=== PATIENT | female | born 1990 | race Caucasian/White ===

== ENCOUNTER 2020-01-24 09:21 | Inpatient (IN) | payer OTHER ==
--- NOTE | 2020-01-24 10:51 | BHS.RME ---
Substance Use & Tx History - Substance Use History Alcohol Substance amount: 2pints of vodka Frequency of use: Daily Substance route: Oral Date of Last Use: 01/23/20 Marijuana/Hashish Substance amount: 5 $ Frequency of use: Daily Substance route: Smoking Date of Last Use: 01/22/20 Xanax Substance amount: 1mg Frequency of use: Daily Substance route: Oral Date of Last Use: 01/22/20 - Last Treatment Date of last treatment: never been in detox before Physical/Psych/Mental Status - Behavior Eye Contact: Normal - Cooperativeness Cooperativeness: Cooperative - Thinking Thought Processes: Logical Thought content: Future oriented - Physical Health Problems Is patient presently having any pain?: No Does patient presently have any injuries (include location): No Does patient currently have a fever: No CIWA Nausea/Vomitin Muscle Tremors: 2 Anxiety: 3 Agitation: 3 Paroxysmal Sweats: No Perspiration Orientation: 0-Oriented Tacttile Disturbances: 1-Very Mild Itch/Numbness Auditory Disturbances: 0-None Visual Disturbances: 1-Very Mild Sensitivity Headache: 2-Mild CIWA-Ar Total Score: 14
--- NOTE | 2020-01-24 10:58 | HP ---
CIWA Score Nausea/Vomitin Muscle Tremors: 2 Anxiety: 3 Agitation: 3 Paroxysmal Sweats: No Perspiration Orientation: 0-Oriented Tacttile Disturbances: 1-Very Mild Itch/Numbness Auditory Disturbances: 0-None Visual Disturbances: 1-Very Mild Sensitivity Headache: 2-Mild CIWA-Ar Total Score: 14 - Admission Criteria OASAS Guidelines: Admission for Medically Managed Detox: Requires at least one of the followin. CIWA greater than 12 2. Seizures within the past 24 hours 3. Delirium tremens within the past 24 hours 4. Hallucinations within the past 24 hours 5. Acute intervention needed for co occurring medical disorder 6. Acute intervention needed for co occurring psychiatric disorder 7. Severe withdrawal that cannot be handled at a lower level of care (continued vomiting, continued diarrhea, abnormal vital signs) requiring intravenous medication and/or fluids 8. 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 ...LMP: 01/09/20 ...: No Psych: Yes: Anxiety, Depression - Smoking History Smoking history: Former smoker Have you smoked in the past 12 months: No If you are a former smoker, when did you quit?: 05/2018 - Alcohol/Substance Use Hx Alcohol Use: Yes Date of Last Use: 01/23/20 - Social History Usual Living Arrangement: Yes: With Parent Do you think of yourself as: Straight/Heterosexual ADL: Independent 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 History of Recent Travel: No Other Social History: 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 ,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 Admission ROS S - HPI Chief Complaint: i need help to stop drinking alcohol,[place] Allergies/Adverse Reactions: Allergies Allergy/AdvReac Type Severity Reaction Status Date / Time No Known Allergies Allergy Verified 01/24/20 11:02 History of Present Illness: this 29 years old female with alcohol dependence,marijuana abused,seeking detox,need help to stop drinking Exam Limitations: No Limitations - Ebola screening Have you traveled outside of the country in the last 21 days: No Have you had contact with anyone from an Ebola affected area: No Have you been sick,other than usual withdrawal symptoms: No Do you have a fever: No - Review of Systems Constitutional: Loss of Appetite, Malaise, Night Sweats, Changes in sleep, Weakness EENT: reports: Nose Congestion Respiratory: reports: No Symptoms reported Cardiac: reports: No Symptoms Reported GI: reports: Nausea, Poor Appetite, Abdominal cramping : reports: No Symptoms Reported Musculoskeletal: reports: Back Pain, Muscle Pain Integumentary: reports: Dryness Neuro: reports: Tremors Endocrine: reports: No Symptoms Reported Hematology: reports: No Symptoms Reported Psychiatric: reports: No Sypmtoms Reported, Judgement Intact, Mood/Affect Appropiate, Orientated x3, Anxious, Depressed Other Systems: Reviewed and Negative Patient History - Patient Medical History Hx Anemia: No Hx Asthma: No Hx Chronic Obstructive Pulmonary Disease (COPD): No Hx Cancer: No Hx Cardiac Disorders: No Hx Congestive Heart Failure: No Hx Hypertension: No Hx Hypercholesterolemia: No Hx Pacemaker: No HX Cerebrovascular Accident: No Hx Seizures: No Hx Dementia: No Hx Diabetes: No Hx Gastrointestinal Disorders: No Hx Liver Disease: No Hx Genitourinary Disorders: No Hx Sexually Transmitted Disorders: No Hx Renal Disease (ESRD): No Hx Thyroid Disease: No Hx Human Immunodeficiency Virus (HIV): No (07/2019 negative) Hx Hepatitis C: No Hx Depression: Yes (anxiety) Hx Suicide Attempt: No Hx Bipolar Disorder: No Hx Schizophrenia: No Other Medical History: no suicidal,no homicidal - Patient Surgical History Past Surgical History: No - PPD History Previous Implant?: Yes Documented Results: Negative w/o proof Implanted On Prior [facility] Admission?: No PPD to be Administered?: Yes - Reproductive History Patient is a Female of Child Bearing Age (11 -55 yrs old): Yes Last Menstrual Period: 01/07/20 Patient : No - Smoking Cessation Smoking history: Former smoker Have you smoked in the past 12 months: No If you are a former smoker, when did you quit?: 05/2018 Hx Chewing Tobacco Use: No Initiated information on smoking cessation: No - Substance & Tx. History Hx Alcohol Use: Yes Hx Substance Use: Yes Substance Use Type: Alcohol, Marijuana Hx Substance Use Treatment: No - Substances abused Alcohol Substance route: Oral Frequency: Daily Amount used: 2 pints of vodka Age of first use: 14 Date of last use: 01/23/20 Marijuana/Hashish Substance route: Smoking Frequency: Daily Amount used: 5$ Age of first use: 12 Date of last use: 01/22/20 Alprazolam (Xanax) Substance route: Oral Frequency: Daily Amount used: 1mg Age of first use: 28 Date of last use: 01/22/20 Admission Physical Exam [facility] - Vital Signs Vital Signs: t98.2,p60,r18,bp116/73 - Physical General Appearance: Yes: Moderate Distress, Tremorous, Irritable, Sweating, Anxious HEENTM: Yes: Normal ENT Inspection, JENNIFER, Pharynx Normal Respiratory: Yes: Within Normal Limits, Lungs Clear, Normal Breath Sounds Neck: Yes: Within Normal Limits, Supple, Trachea in good position Breast: Yes: Breast Exam Deferred Cardiology: Yes: Within Normal Limits, Regular Rhythm, Regular Rate, S1, S2 Abdominal: Yes: Within Normal Limits, Normal Bowel Sounds, Non Tender, Soft Genitourinary: Yes: Within Normal Limits Back: Yes: Muscle Spasm Musculoskeletal: Yes: Back pain, Muscle Pain Extremities: Yes: Tremors Neurological: Yes: registrar nurses' registry II-XII NML intact, Fully Oriented, Alert, Motor Strength 5/5 Integumentary: Yes: Dry Lymphatic: Yes: Within Normal Limits - Diagnostic (1) Alcohol dependence with uncomplicated withdrawal Status: Acute (2) Cannabis dependence Status: Chronic (3) Syncope Status: Acute (4) Anxiety and depression Status: Chronic (5) Uncomplicated sedative, hypnotic or anxiolytic withdrawal Status: Acute Cleared for Admission [facility] - Detox or Rehab [facility] Level of Care: Medically Managed Detox Regimen/Protocol: Ativan Inpatient Rehab Admission - Rehab Decision to Admit Inpatient rehab admission?: No
[2020-01-24] MEDS ORDERED: METHOCARBAMOL 500 MG TABLET PO PRN (11:25)
[2020-01-24] MEDS ORDERED: BISMUTH SUBSALICYLATE 524 MG/30 ML UD PO PRN (11:25)
[2020-01-24] MEDS ORDERED: MAG HYDROX/AL HYDROX/SIMETH 30 ML UNIT-DOSE CUP PO PRN (11:25)
[2020-01-24] MEDS ORDERED: MENTHOL/PHENOL 1 EACH UD MM PRN (11:25)
[2020-01-24] MEDS ORDERED: IBUPROFEN 400 MG TABLET (FP) PO PRN (11:25)
[2020-01-24] MEDS ORDERED: ONDANSETRON *ODT* 4 MG TABLET SL ONE (11:25)
[2020-01-24] MEDS ORDERED: MAGNESIUM HYDROX 2400MG/30ML ORAL SUSPENSION 30 ML CUP PO PRN (11:25)
[2020-01-24] MEDS ORDERED: LORazepam 1 MG TABLET PO PRN (11:25)
[2020-01-24] MEDS ORDERED: MAGNESIUM CITRATE 300 ML BOTTLE PO PRN (11:25)
[2020-01-24] MEDS ORDERED: ACETAMINOPHEN 325 MG TABLET (FP) PO PRN ×2 (11:25)
[2020-01-24 12:20] VITALS: BMI 22.9
[2020-01-24] MEDS: NICOTINE POLACRILEX 2 MG GUM BUC PRN ×2 (13:10→20:17)
[2020-01-24] MEDS: hydrOXYzine PAMOATE 25 MG CAPSULE (FP) PO SCH ×2 (13:25→18:08)
[2020-01-24 15:16] VITALS: BP 133/71; PULSE 53; TEMP 97.3
[2020-01-24] MEDS ORDERED: LORazepam 2 MG TABLET PO SCH (17:00)
--- NOTE | 2020-01-24 20:25 | DS ---
[facility] Detox Discharge Summary Admission Date: 01/24/20 Discharge Date: 01/24/20 - History Additional Comments: Patient is leaving against medical advice. She was admitted today and reports that she does not feel safe and comfortable in a unisex unit. patient declined offer to be transferred to another floor and insists that she wants to leave. Patient reports that she feels better after being medicated. She is alert and oriented x 3, ambulates independently, not in acute distress and vital signs stable except heart rate at 53. Patient instructed to follow up with her primary physician. Patient signed the AMA form and left. Pertinent Past History: Alcohol dependence Cannabis dependence Sedative, hypnotic and anxiolytic dependence Depression Anxiety - Physical Exam Results Vital Signs: Vital Signs Temperature 97.3 F L 01/24/20 12:49 Pulse Rate 53 L 01/24/20 12:49 Respiratory Rate 18 01/24/20 12:49 Blood Pressure 133/71 01/24/20 12:49 O2 Sat by Pulse Oximetry (%) 100 01/24/20 12:49 Pertinent Admission Physical Exam Findings: Alcohol withdrawal symptoms Sedative, hypnotic and anxiolytic withdrawal symptoms - Medication Discharge Medications: Ambulatory Orders Citalopram Hydrobromide [Celexa -] 40 mg PO DAILY 01/24/20 Norethindrone AC-Eth Estradiol [Junel] 1 each PO DAILY 01/24/20 Omeprazole 40 mg PO DAILY 01/24/20 - Diagnosis (1) Alcohol dependence with uncomplicated withdrawal Current Visit: Yes Status: Acute (2) Anxiety and depression Current Visit: Yes Status: Chronic (3) Cannabis dependence Current Visit: Yes Status: Chronic (4) Syncope Current Visit: Yes Status: Acute (5) Uncomplicated sedative, hypnotic or anxiolytic withdrawal Current Visit: Yes Status: Acute - AMA Did Patient Leave Against Medical Advice: Yes
[2020-01-24] MEDS ORDERED: THIAMINE HCL 100 MG TABLET (FP) PO SCH (22:00)
[2020-01-24] MEDS ORDERED: MELATONIN 5 MG TABLETS PO SCH (22:00)
[2020-01-25] MEDS ORDERED: PRENATAL VITAMINS W/ FOLIC ACID TABLET (FP) PO SCH (10:00)
[2020-01-25] MEDS ORDERED: NICOTINE 7 MG/24 HOURS TOPICAL PATCH TD SCH (10:00)
[2020-01-26] MEDS ORDERED: LORazepam 1 MG TABLET PO SCH (05:00)
--- NOTE | 2020-01-26 10:27 | EKG ---
Test Reason : Blood Pressure : / mmHG Vent. Rate : 051 BPM Atrial Rate : 051 BPM P-R Int : 130 ms QRS Dur : 108 ms QT Int : 452 ms P-R-T Axes : 056 050 050 degrees QTc Int : 416 ms SINUS BRADYCARDIA OTHERWISE NORMAL ECG NO PREVIOUS ECGS AVAILABLE Confirmed by Jared Shine ([id number]) on 01/26/2020 10:27:10 AM Referred By: Confirmed By:Jared Shine
[2020-01-27] MEDS ORDERED: LORazepam 0.5 MG TABLET PO PRN
[2020-01-27] MEDS ORDERED: LORazepam 0.5 MG TABLET PO SCH (05:00)
[2020-01-28] MEDS ORDERED: LORazepam 0.5 MG TABLET PO ONE (05:00)
== END 2020-01-24 21:11 | disposition left against medical advice (07) | DRG 770 ==
LOC: YASAS 09:21 → Y6N 12:25
PROVIDERS: ADMIT Allergy & Immunology; ATTEND Allergy & Immunology
PROC: HZ2ZZZZ Detoxification Services for Substance Abuse Treatment (ICD-10-PCS; principal; 2020-01-24)
DX: F10.230 Alcohol dependence with withdrawal, uncomplicated (principal); F13.230 Sedative, hypnotic or anxiolytic dependence with withdrawal, uncomplicated; F12.20 Cannabis dependence, uncomplicated; F41.9 Anxiety disorder, unspecified; F32.9 Major depressive disorder, single episode, unspecified; Z87.891 Personal history of nicotine dependence
CPT/HCPCS: 81025; 93005; 93010; U0003